=== PATIENT | female | born 1970 | race Caucasian/White ===

== ENCOUNTER → 2016-07-28 | Outpatient (CLI) | payer OTHER | LOC: BRMIMAGING 08:59 | PROVIDERS: ATTEND Physician Assistant Medical | DX: R05 Cough (principal) | CPT/HCPCS: 71020-PO ==

== ENCOUNTER → 2016-09-23 | Outpatient (CLI) | payer OTHER | LOC: BRMIMAGING 14:25 | PROVIDERS: ATTEND Physician Assistant Medical | DX: Z12.31 Encounter for screening mammogram for malignant neoplasm of breast (principal) | CPT/HCPCS: G0202 ==

== ENCOUNTER → 2017-09-12 | Outpatient (CLI) | payer OTHER | LOC: BRMIMAGING 09-07 07:47 | PROVIDERS: ATTEND Family Medicine | DX: K80.20 Calculus of gallbladder without cholecystitis without obstruction (principal); K58.9 Irritable bowel syndrome, unspecified; K90.9 Intestinal malabsorption, unspecified ==

== ENCOUNTER 2017-09-22 05:36 | Day surgery (SDC) | payer OTHER ==
[2017-09-22] MEDS ORDERED: LIDOCAINE 1% 2 ML INJ ID PRN (06:08)
[2017-09-22] MEDS ORDERED: LR 1,000 ML IV ONE (06:08)
[2017-09-22 06:46] LABS: PLATELET COUNT 261 10^3/uL (150-400)
[2017-09-22] MEDS ORDERED: CLINDAMYCIN 900 MG/DEXTROSE 50 ML IV ONE (06:53)
--- NOTE | 2017-09-22 06:53 | PDHPUP ---
History & Physical Update H&P update statement: This history and physical update is based on an assessment of the patient which was completed after admission or registration (within 24 hours), but prior to the surgery/procedure. H&P update: H&P reviewed & patient examined, no change in patient's condition since H&P completed
--- NOTE | 2017-09-22 07:03 | PDANEPAE ---
ANE History of Present Illness 47 year old female for lap twan. ANE Past Medical History - Cardiovascular History Hx Hypertension: No Hx Arrhythmias: No Hx Chest Pain: No Hx Coronary Artery / Peripheral Vascular Disease: No Hx CHF / Valvular Disease: No Hx Palpitations: No Cardiovascular History Comment: Reports she has POTS and gets tachycardia - Pulmonary History Hx COPD: No Hx Asthma/Reactive Airway Disease: Yes Hx Recent Upper Respiratory Infection: No Hx Oxygen in Use at Home: No Hx Sleep Apnea: Yes Sleep Apnea Screening Result - Last Documented: Positive Pulmonary History Comment: mild asthma triggered by exercise - Neurologic History Hx Cerebrovascular Accident: No Hx Seizures: No Hx Dementia: No - Endocrine History Hx Diabetes: No Hypothyroid: No Hyperthyroid: No Obesity: mild - Renal History Hx Renal Disorders: No - Liver History Hx Hepatic Disorders: No - Neurological & Psychiatric Hx Hx Neurological and Psychiatric Disorders: Yes Neurological / Psychiatric History Comment: shogrens syndrome. Juliana-danlos. mothers has lupus - Cancer History Hx Cancer: No - Congenital Disorder History Hx Congenital Disorders: Yes Congenital History Comment: mothers side lupus - GI History Hx Gastrointestinal Disorders: Yes Gastrointestinal History Comment: IBS mostly constipation - Other Health History Other Health History: chronic anemia. IV iron infusion in mar 2017 - Chronic Pain History Chronic Pain: No - Surgical History Prior Surgeries: gastric bypass surgery 2010. breast augmentation 2011 ANE Review of Systems Review of systems is: negative Review of Systems: - Exercise capacity Exercise capacity: >=4 METS METS (RN): 6 METS ANE Patient History - Allergies Allergies/Adverse Reactions: Penicillins Allergy (Verified 09/21/17 12:48) Other-Enter Comments - Home Medications Home medications: home medication list seen and reviewed Home Medications: Cholecalciferol (Vitamin D3) 09/21/17 [Last Taken 09/01/17] Iron 09/21/17 [Last Taken 09/01/17] Multivitamin (*) 09/21/17 [Last Taken 09/01/17] Oxycodone HCl 09/21/17 [Last Taken 09/21/17 19:00] Plaquenil 200 mg (*) 09/21/17 [Last Taken 09/01/17] Seroquel 09/21/17 [Last Taken 09/21/17 19:00] Xanax 09/21/17 [Last Taken 09/21/17 19:00] - NPO status NPO Status: no food or drink >8 hours NPO Since - Liquids (Date): 09/21/17 NPO Since - Liquids (Time): 20:00 NPO Since - Solids (Date): 09/21/17 NPO Since - Solids (Time): 19:30 - Anes Hx Anes Hx: no prior problems - Smoking Hx Smoking Status: Never smoked Marijuana use: No - Alcohol Use Alcohol Use: None - Family Anes Hx Family Anes Hx: neg - N/A Family Hx Anesthesia Complications: none ANE Labs/Vital Signs - Labs Result Diagrams: 09/22/17 06:34 - Vital Signs Vital Signs: reviewed preoperatively; see RN documention for details Blood Pressure: 98/74 Heart Rate: 77 Respiratory Rate: 15 O2 Sat (%): 100 Height: 157.48 cm Weight: 79.379 kg ANE Physical Exam - Airway Neck exam: FROM Mallampati Score: Class 2 Mouth exam: normal dental/mouth exam - Pulmonary Pulmonary: no respiratory distress - Cardiovascular Cardiovascular: regular rate and rhythym - ASA Status ASA Status: III ANE Anesthesia Plan Anesthesia Plan: general endotracheal anesthesia Total IV Anesthesia: No
[2017-09-22] MEDS ORDERED: MIDAZOLAM 2 MG/2 ML VIAL IVP ONE (07:06)
[2017-09-22] MEDS ORDERED: MIDAZOLAM 2 MG/2 ML VIAL ONE (07:08)
[2017-09-22] MEDS ORDERED: fentaNYL 100 MCG/2 ML INJ ONE ×2 (07:14→08:44)
[2017-09-22] MEDS ORDERED: PROPOFOL 200 MG/20 ML VIAL ONE (07:14)
[2017-09-22] MEDS ORDERED: BUPIVACAINE 0.25% 30 ML SDV ONE (07:31)
[2017-09-22] MEDS ORDERED: EPINEPHrine 1 MG/ML INJ ONE (07:32)
[2017-09-22] MEDS ORDERED: PHENYLEPHRINE HCL 100 MCG/ML SYR ONE (07:35)
[2017-09-22] MEDS ORDERED: LIDOCAINE 2% 5 ML SDV ONE (07:36)
[2017-09-22] MEDS ORDERED: ROCURONIUM 50 MG/5 ML VIAL ONE (07:36)
[2017-09-22] MEDS ORDERED: ONDANSETRON 4 MG/2 ML VIAL IVP PRN (07:48)
[2017-09-22] MEDS ORDERED: ACETAMINOPHEN 500 MG TAB PO PRN (07:48)
[2017-09-22] MEDS ORDERED: LR 500 ML IV PRN (07:48)
[2017-09-22] MEDS ORDERED: oxyCODONE IR 5 MG TAB PO PRN (07:48)
[2017-09-22] MEDS ORDERED: HYDROmorphONE/DILAUDID 2 MG/ML INJ IVP PRN (07:48)
[2017-09-22] MEDS ORDERED: NALOXONE HCL 0.4 MG/ML INJ IVP PRN (07:48)
[2017-09-22] MEDS ORDERED: KETOROLAC 30 MG/1 ML SDV ONE (07:58)
--- NOTE | 2017-09-22 08:18 | POSTOPPROG ---
Post Op Note Date of Operation: 09/22/17 Surgeon: Bry Rice Anesthesiologist: Ryan Anesthesia: GET(General Endotracheal) Pre-op Diagnosis: Biliary Colic Post-op Diagnosis: chronic cholecystitis Procedure: Lap twan Findings: chronic cholecystitis, critical view obtained Inf/Abcess present in the surg proc area at time of surgery?: No EBL: Minimal Total fluids administered: 500cc washout Specimen(s): GB
[2017-09-22] MEDS: fentaNYL 100 MCG/2 ML INJ IVP PRN ×2 (08:46→09:17)
[2017-09-22] MEDS ORDERED: oxyCODONE IR 5 MG TAB ONE (10:39)
[2017-09-22 10:59] VITALS: BP 113/69
--- NOTE | 2017-09-22 12:08 | POSTANESTH ---
Post Anesthetic Evaluation Cardiovascular Status: Normal, Stable, Similar to Pre-Op Cond Respiratory Status: Normal, Stable, Similar to Pre-op Cond. Level of Consciousness/Mental Status: Can Participate in Eval, Alert and Oriented Pain Control: Adequate, Prn Tx Ordered Nausea/Vomiting Control: Adequate, Prn Tx Ordered Complications Possibly Related to Anesthesia: None Noted
--- NOTE | 2017-09-22 13:52 | GOP ---
[f rep st] OPERATIVE REPORT DATE OF OPERATION: 09/22/2017 SURGEON: Bry Rice MD PROGRAM ADVOCATE: None. ANESTHESIA: General endotracheal. ANESTHESIOLOGIST: Dr. Davis PREOPERATIVE DIAGNOSIS: Biliary colic. POSTOPERATIVE DIAGNOSIS: Chronic cholecystitis with cholelithiasis. PROCEDURE PERFORMED: Laparoscopic cholecystectomy. FINDINGS: Edematous gallbladder wall with mild adhesive disease. Critical view obtained. SPECIMENS: Gallbladder. ESTIMATED BLOOD LOSS: 5 cc. DESCRIPTION OF PROCEDURE: The patient was greeted in the preoperative suite. Once again, risks, lenny efits, and alternatives were discussed. Consent was signed. She was then brought back to the operat krista suite, placed on the OR table in supine position. After all anesthesia machines including SCDs w ere on and functioning, [employer] time-out was performed. After successful induction of general anesthesia, the patient's abdomen was prepped and draped in typical sterile fashion. I e ntered the abdomen via an infraumbilical cutdown through which the Veress needle was passed. I achie tammy pneumoperitoneum to 15 mmHg which was well tolerated by the patient. I then inserted a 12 mm Vis iport into this area and inspected the abdominal viscera. I found no significant pathology. I then placed 3 additional 5 mm trocars, 1 in the subxiphoid, 2 in the right upper quadrant all under direct visualization. I successfully retracted the gallbladder over the edge of the liver by dissecting at the infundibulum using a combination of blunt dissection and electrocautery. I identified 2 and onl y 2 structures leading toward the gallbladder. I clipped 1st the cystic artery, then the cystic duct and divided them both. I then removed the gallbladder off the liver bed using electrocautery. It w as placed in an EndoCatch bag and removed. I then visualized the right upper quadrant. Hemostasis w as good. There was no biliary leakage from the liver bed. I irrigated the right upper quadrant with 500 cc sterile saline noting clear effluent in the suction canister. Local anesthesia was then infi ltrated into all port sites. My infraumbilical port site was closed with an 0 Vicryl stitch using gemma Garciaen fascial closure device noting excellent fascial reapproximation. The pneumoperiton eum was then evacuated. The skin was closed with Monocryl over which Dermabond was placed. The jagdeep ent tolerated the procedure well with no intraoperative complications. DRAINS: None. /[id number]/MODL
== END 2017-09-22 11:10 | disposition home or self-care (01) ==
LOC: FSGY 05:36
PROVIDERS: ATTEND Surgery
PROC: 0FT44ZZ Resection of Gallbladder, Percutaneous Endoscopic Approach (ICD-10-PCS; principal; 2017-09-22 07:15)
DX: K80.10 Calculus of gallbladder with chronic cholecystitis without obstruction (principal); R19.7 Diarrhea, unspecified; R19.5 Other fecal abnormalities; K90.9 Intestinal malabsorption, unspecified; K58.1 Irritable bowel syndrome with constipation; D64.9 Anemia, unspecified; F41.9 Anxiety disorder, unspecified; J45.909 Unspecified asthma, uncomplicated; G89.29 Other chronic pain; G47.09 Other insomnia; Z82.49 Family history of ischemic heart disease and other diseases of the circulatory system; Z83.3 Family history of diabetes mellitus; Z98.84 Bariatric surgery status; Z88.0 Allergy status to penicillin
CPT/HCPCS: J0171; J1885; J2250; J2370; J2704; J3010